=== PATIENT | male | born 1950 | race Caucasian/White ===

== ENCOUNTER 2019-01-31 06:35 | Inpatient (IN) | payer OTHER ==
[~2019-01-31] VITALS: Ht 172.7 cm; Wt 99.4 kg
--- NOTE | ~2019-01-31 | D ---
[facility] [place] [address] DISCHARGE SUMMARY Name: BENOIT BURROWS Room #: 212-P ADM IN M.R.#: [id number] Admission: 01/31/19 ������������������ Attend Phys: Toni Michelle MD, Discharge: ������������������ Date of : 52 Report #: [id number] THIS REPORT FOR: //name// CC: Toni Mosqueda DISCHARGE DIAGNOSES: 1. Unstable angina with normal left ventricular systolic function. 2. Multivessel coronary disease with multivessel bypass surgery (left internal mammary to the left anterior descending, saphenous vein graft to marginal branch, saphenous vein graft to posterior descending. 3. Hypertension. 4. Dyslipidemia. 5. Chronic obstructive pulmonary disease. 6. Moderate nonocclusive carotid plaquing. 7. Peripheral vascular disease. HISTORY OF PRESENT ILLNESS: For the complete details of the history of present illness, see dictated history and physical. Briefly, the patient is a 68-year-old gentleman, who presented with progressive exertional angina over the preceding 2 weeks. He was admitted for coronary angiography. The patient underwent coronary angiography, the details of which can be found under separate heading and dictation. In summary, critical left main disease was identified extending into the ostia of both the LAD and circumflex. There was moderate proximal to mid right coronary disease. He was seen in consultation by Dr. Solo and underwent surgical revascularization on 01/31/2019. His post-procedural course was largely uneventful, was rapidly extubated and weaned to room air. Hemodynamics were stable. Beta blockade and ARB therapy were reinstituted. Due to generalized debility, [facility] prior to transitioning home. Hemodynamics, rhythm and volume status remained stable throughout his hospitalization. DISCHARGE MEDICATIONS: Discharge medicines were reconciled. Discharge medicines include amiodarone 200 mg twice daily for 1 week, then 200 mg daily for 1 month and discontinue, aspirin 81 mg daily, atorvastatin 40 mg daily, iron 150 mg daily for 3 months, losartan 25 mg daily, metoprolol succinate 50 mg daily and hydrocodone 10/325 as needed for pain, Colace 100 mg daily. DISCHARGE FOLLOWUP: With myself in 6-8 weeks. Follow up with Dr. Lonnie Solo as directed. DISCHARGE ACTIVITY: As instructed post-surgical revascularization. DISCHARGE DIET: Heart healthy. [address] [address] DISCHARGE SUMMARY Name: BENOIT BURROWS JACQUELINE Room #: 212-P [facility] IN M.R.#: [id number] Admission: 01/31/19 ������������������ Attend Phys: Toni Michelle MD, Discharge: ������������������ Date of : 52 Report #: [id number] DISCHARGE CONDITION: Stable and improved. ��������������������������������������������� ���������������������������������������� By: ��������������������������������������������� 0813 0833 Toni Michelle MD, FACC /nt
[~2019-01-31 06:35] MED LIST: BACTRIM DS TAB1 EACH PO; FENOFIBRATE160 MG PO; FLEXERIL; HYDROCHLOROTHIA25 M2; LIPITOR40 MG PO; LOSARTAN POTASS50 MG; NORCO 10-325 T1 EACH; SYMBICORT160 MCG/4.
[2019-01-31 07:16] VITALS: BP 158/86
[2019-01-31] MEDS ORDERED: XANAX 0.5 MG0.5 MG PO (07:25)
[2019-01-31] MEDS ORDERED: BYSTOLIC 5 MG5 M1 PO (07:30)
[2019-01-31] MEDS ORDERED: ASPIRIN325 PO (07:30)
--- NOTE | 2019-01-31 09:29 | CATHLAB ---
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 The Right Groin^ was infiltrated with 1% Lidocaine subcutaneous anesthesia. A PINNACLE 6FR Sheath #[id number] sheath was inserted into the RFA^. Coronary angiography was performed using coronary diagnostic catheters. The right coronary system was accessed and visualized with a JR 4 catheter. The left coronary system was accessed and visualized with a JL 4 catheter. The left ventricle was accessed and visualized with a Pigtail catheter. Left ventricular/Aortic Valve gradient assessed via catheter pullback. Left ventriculogram was performed in POTTS projection. Closure device was deployed with a 6 Fr Mynx. The patient tolerated the procedure well and there were no complications associated with the procedure. There was no hematoma. Intraoperative Conscious Sedation Sedation start time: 07:58 Case end Time: 08:40 Fentanyl 50 mcg Versed 1 mg Fluoro Time: 5.70 minutes Dose: DAP 8415.00 cGycm2 1139 mGy Contrast Type and Amount: Omnipaque 85 ml [facility] [address] [facility] [place] [address] INVASIVE PROCEDURE REPORT Name: YULIYABABAKCRAIGBENOIT JACQUELINE Room #: REG [facility]#: [id number] ������������� Admission: 01/31/19 ������������� Attend Phys: Toni Michelle, Discharge: ��� ������������� ��� Date of : 52 Date of Service: 01/31/19 0929 �� Report #: [id number] �������� ��������������������������������������������[id number] Coronary Angiography The patient's coronary anatomy is right dominant. Diagnostic Cath Left Main Critical 99% left main stenosis LAD Severe ostial LAD stenosis, extending from the left main stenosis Diagonal 1 Large first diagonal branch, mild plaquing Circumflex Large, nondominant circumflex. Severe ostial circumflex disease, extension from the left main stenosis OM1 First marginal branch, mild calcific plaquing OM2 Second marginal branch, angiographically normal Right Coronary The right coronary was dominant with a 50-60% proximal stenosis R PDA Large posterior descending branch, angiographically normal RPLV Large posterolateral branch, angiographically normal Left Ventriculography The left ventricle is normal in size with normal contractility. The left ventricular ejection fraction is estimated to be 60-65%. Left ventricular wall motion abnormalities are not present. There is no mitral insufficiency. Hemodynamics The aortic pressure is 149/63 mmHg with a mean of 101 mmHg. The left ventricular pressure is 144/20 mmHg with a mean of mmHg. The left ventricular end diastolic pressure is 29 mmHg. Conclusion 1. Normal global and regional left ventricular systolic function. EF 60% 2. Critical LM stenosis with severe disease at ostium of LAD and circumflex 3. RCA dominant. 50-60% proximal stenosis Recommendations CABG ��������������������������������������������� <ELECTRONICALLY SIGNED> ���������������������������������������� By: Toni Michelle MD, FACC ��������������������������������������������� 01/31/1929 8 8 Toni Michelle MD, FACC /INF
[2019-01-31 11:00] VITALS: BP 137/73
[2019-01-31 12:56] LABS: ABSOLUTE NEUTROPHILS 8.2 thou/uL (1.4-8.2); BASOPHILS 0.3 % (0.0-2.0); HEMATOCRIT 39.4 % (42.0-52.0); HEMOGLOBIN 14.1 gm/dL (14.0-18.0); LYMPHOCYTES 28.2 % (24.0-44.0); MCH 33.1 pg (26.0-34.0); MCHC 35.9 g/dL (28.0-37.0); MCV 92.2 fL (80.0-100.0); MONOCYTES 8.3 % (1.0-8.0); PLATELET COUNT 243 thou/uL (150-400); POLYS 59.2 % (36.0-66.0); RBC 4.27 mil/uL (4.50-6.00); RDW 13.6 % (10.5-14.5); WBC 13.9 thou/uL (4.0-11.0)
[2019-01-31 13:15] LABS: CALCIUM 9.3 mg/dL (8.5-10.1); CREATININE 1.1 mg/dL (0.7-1.3); POTASSIUM 3.9 mmol/L (3.5-5.1)
[2019-01-31 13:16] LABS: APTT 25.9 Seconds (24.5-32.8); PROTIME 10.4 Seconds (9.3-11.4)
[2019-01-31 13:21] LABS: ALBUMIN 3.7 g/dL (3.4-5.0); TOTAL BILIRUBIN 0.8 mg/dL (<0.1-1.0); TOTAL PROTEIN 7.3 g/dL (6.4-8.2)
--- NOTE | 2019-01-31 13:47 | 2DMMODE ---
[facility] [address] [place] [address] 2 D/M-MODE ECHOCARDIOGRAM Name: YULIYABABAKCRAIGBENOIT TOVARITH Room #: 212-P ADM IN M.R.#: [id number] ������������� Admission: 01/31/19 ������������� Attend Phys: Toni Michelle, Discharge: ��� ������������� ��� Date of : 52 Date of Service: 01/31/19 1346 �� Report #: [id number] �������� ��������������������������������������������[id number] THIS REPORT FOR: //name// APPROVED REPORT Study performed: 01/31/2019 12:15:51 EXAM: Comprehensive 2D, Doppler, and color-flow Echocardiogram Patient Location: Bedside Room #: 212 Status: routine BSA: 2.15 HR: 49 bpm BP: 162/85 mmHg Rhythm: Bradycardia Other Information Study Quality: Adequate Risk Factors: Cardiac Risk Factors: HTN, Hyperlipidemia, Smoking Indications COPD CAD Chest Pain 2D Dimensions IVSd: 9.11 (7-11mm) LVOT Diam: 22.00 (18-24mm) LVDd: 48.26 mm PWd: 10.28 (7-11mm) Ascending Ao: 30.46 (22-36mm) LVDs: 31.03 (25-40mm) Aortic Root: 27.85 mm LV Single Plane 4CH: 57.40 % LV Single Plane 2CH: 53.71 % Biplane EF: 57.1 % Volumes Left Atrial Volume (Systole) Single Plane 4CH: 61.86 mL Single Plane 2CH: 98.87 mL LA ESV Index: 40.00 mL/m2 Aortic Valve AoV Peak Nicholas.: 1.12 m/s [facility] [address] [place] [address] 2 D/M-MODE ECHOCARDIOGRAM Name: BENOIT BURROWS Room #: 212-P [facility].#: [id number] ������������� Admission: 01/31/19 ������������� Attend Phys: Toni Michelle, Discharge: ��� ������������� ��� Date of : 52 Date of Service: 01/31/19 1346 �� Report #: [id number] �������� ��������������������������������������������[id number] AO Peak Gr.: 5.05 mmHg LVOT Max P.77 mmHg LVOT Max V: 0.83 m/s AMANUEL Vmax: 2.87 cm2 Mitral Valve E/A Ratio: 3.8 MV Decel. Time: 232.29 ms MV E Max Nicholas.: 1.02 m/s MV A Nicholas.: 0.27 m/s MV PHT: 67.36 ms IVRT: 87.66 ms TDI E/Lateral E': 7.29 E/Medial E': 11.33 Medial E' Nicholas.: 0.09 m/s Lateral E' Nicholas.: 0.14 m/s Pulmonary Valve PV Peak Nicholas.: 0.83 m/s PV Peak Gr.: 2.77 mmHg Tricuspid Valve TR Peak Nicholas.: 2.77 m/s RAP Estimate: 7.00 mmHg TR Peak Gr.: 30.77 mmHg PA Pressure: 38.00 mmHg Left Ventricle The left ventricle is normal size. There is normal LV segmental wall motion. There is normal left ventricular wall thickness. Left ventricular systolic function is normal. The left ventricular ejection fraction is within the normal range. LVEF is 55-60%. The left ventricular diastolic function is normal. Right Ventricle The right ventricle is normal size. The right ventricular systolic function is normal. Atria Left atrium is mildly dilated. The right atrium size is normal. Aortic Valve The aortic valve is normal in structure. No aortic regurgitation is present. There is no aortic valvular stenosis. Mitral Valve Mild mitral annular calcification. Mild to moderate mitral [facility] [address] [place] [address] 2 D/M-MODE ECHOCARDIOGRAM Name: BENOIT BURROWS JACQUELINE Room #: 212-P [facility] IN ..#: [id number] ������������� Admission: 01/31/19 ������������� Attend Phys: Toni Michelle, Discharge: ��� ������������� ��� Date of : 52 Date of Service: 01/31/19 1346 �� Report #: [id number] �������� ��������������������������������������������[id number] regurgitation. No evidence of mitral valve stenosis. Tricuspid Valve The tricuspid valve is normal in structure. Mild tricuspid regurgitation. Pulmonary artery pressure is 38 mmHg. Pulmonic Valve The pulmonary valve is normal in structure. There is no pulmonic valvular regurgitation. Great Vessels The aortic root is normal in size. The ascending aorta is normal in size. IVC is normal in size and collapses >50% with inspiration. Pericardium There is no pericardial effusion. <Conclusion> Left ventricular systolic function is normal. There is normal LV segmental wall motion. LVEF is 55-60%. The aortic valve is normal in structure. No aortic regurgitation or stenosis. Mild mitral annular calcification. Mild to moderate mitral regurgitation. Mild tricuspid regurgitation. Pulmonary artery pressure of 38 mmHg. There is no pericardial effusion. ��������������������������������������������� <ELECTRONICALLY SIGNED> ���������������������������������������� By: Toni Michelle MD, [facility] ��������������������������������������������� 01/31/19 1346 134 134 Toni Michelle MD, FAC /INF
[2019-01-31 13:50] LABS: ANISOCYTOSIS 1+
[2019-01-31 19:06] LABS: URINE BILIRUBIN NEGATIVE (Negative); URINE BLOOD NEGATIVE (Negative); URINE CLARITY CLEAR; URINE COLOR YELLOW; URINE GLUCOSE-RANDOM* NEGATIVE (Negative); URINE KETONES NEGATIVE (Negative); URINE LEUKOCYTES-REFLEX NEGATIVE (Negative); URINE NITRITE-REFLEX NEGATIVE (Negative); URINE PROTEIN (DIPSTICK) NEGATIVE (Negative); URINE UROBILINOGEN 0.2 E.U./dl (0.2-1.0)
[2019-01-31 20:11] VITALS: BP 137/73
[2019-01-31 20:20] VITALS: BP 141/81
[2019-01-31 23:14] VITALS: BP 133/74
[2019-02-01] VITALS (8 sets, daily range): BP systolic 133–148; BP diastolic 63–84
--- NOTE | 2019-02-01 08:12 | EKG ---
[address] [address] ELECTROCARDIOGRAM REPORT Name: YULIYABENOIT BANKS Room #: 212-P ADM IN M.R.#: [id number] ������������������ Admission: 01/31/19 ������������������ Attend Phys: Toni Michelle MD, Discharge: ������������������ Date of : 52 Report #: [id number] ����������������������������������������������������������������� [id number] THIS REPORT FOR: //name// [facility] Test Date: 2019-01-31 Test Time: 09:15:09 Pat Name: BENOIT BURROWS Department: Room: [facility] Gender: M Senior Administrator Support: Rachael GROVES : 1950 Requested By: Toni Michelle Order Number: [id number] MD: Toni Michelle Measurements Intervals [place] Rate: 48 P: 59 NH: 137 QRS: 10 QRSD: 100 T: 8 QT: 471 QTc: 421 Interpretive Statements Sinus bradycardia Abnormal R-wave progression, early transition No previous ECG available for comparison Electronically Signed On 02-01-2019 8:12:44 CDT by Toni Michelle [email or web address] ��������������������������������������������� <ELECTRONICALLY SIGNED> ���������������������������������������� By: Toni Michelle MD, [facility] ��������������������������������������������� 02/01/1912 4 4 Toni Michelle MD, [facility] /EPI
--- NOTE | 2019-02-01 08:45 | EKG ---
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 : 1950 Requested By: Dominguez Yanez Order Number: [id number] MD: Toni Michelle Measurements Intervals [place] Rate: 52 P: 40 NM: 148 QRS: 1 QRSD: 90 T: QT: 469 QTc: 437 Interpretive Statements Sinus rhythm Abnormal R-wave progression, early transition Minimal ST depression, anterolateral leads No previous ECG available for comparison Electronically Signed On 02-01-2019 8:45:08 CDT by Toni Michelle [email or web address] ��������������������������������������������� <ELECTRONICALLY SIGNED> ���������������������������������������� By: Toni Michelle MD, [facility] ��������������������������������������������� 02/01/19 0845 9 9 Toni Michelle MD, [facility] /EPI
[2019-02-01 12:06] LABS: GLYCOHEMOGLOBIN (HGB A1C) 5.5 % (4.8-5.6)
[2019-02-02 00:19] VITALS: BP 136/80
[2019-02-02 07:22] VITALS: BP 141/80
[2019-02-02 11:53] VITALS: BP 137/70
[2019-02-02 16:27] VITALS: BP 156/87
[2019-02-02 21:28] VITALS: BP 140/77
[2019-02-03 05:18] LABS: HEMATOCRIT 34.2 % (42.0-52.0); HEMOGLOBIN 12.5 gm/dL (14.0-18.0); MCH 33.8 pg (26.0-34.0); MCHC 36.4 g/dL (28.0-37.0); RBC 3.68 mil/uL (4.50-6.00); RDW 13.8 % (10.5-14.5); WBC 16.7 thou/uL (4.0-11.0)
[2019-02-03 08:34] VITALS: BP 141/79
--- NOTE | 2019-02-03 09:01 | HC ---
[facility] [place] [address] CONSULTATION Name: BENOIT BURROWS Room #: 212-P ADM IN M.R.#: [id number] Admission: 01/31/19 ������������������ Attend Phys: Toni Michelle MD, Discharge: ������������������ Date of : 52 Report #: [id number] THIS REPORT FOR: //name// CC: Toni Michelle Osito Mosqueda DATE OF SERVICE: 01/31/2019 REASON FOR CONSULTATION: Coronary artery disease. HISTORY OF PRESENT ILLNESS: We were asked by Dr. Michelle to see the patient for coronary artery disease. The patient presents with exertional angina. The patient has had 2 episodes of severe chest tightness and shortness of breath with exertion over the last 2 weeks. Cardiac catheterization today shows 99% left main stenosis and a 50-60% right coronary stenosis. Left ventricular function seems to be satisfactory. PAST MEDICAL HISTORY: We note hypertension and hyperlipidemia. The patient denies diabetes mellitus. The patient also has chronic obstructive pulmonary disease. 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 MEDICATIONS: Include alprazolam, nebivolol, aspirin, hydrochlorothiazide, losartan, Symbicort inhaler, atorvastatin, hydrocodone for back and neck pain. ALLERGIES: None known. SOCIAL HISTORY: Former smoker for many years. FAMILY HISTORY: Not significant for coronary artery disease. REVIEW OF SYSTEMS: GENERAL: The patient denies fever, weight change. EYES: Wears glasses. HEENT: No headache, no sinus issues. No hearing problems. RESPIRATORY: Denies shortness of breath other than with his exertional symptoms. CARDIAC: As mentioned, severe angina with exertion. No rest pain, no palpitations. GASTROINTESTINAL: No nausea, vomiting or blood. GENITOURINARY: No urgency, frequency or blood. MUSCULOSKELETAL: He has had a neck fusion and still has neck pain and neuropathic pain from that. NEUROLOGIC: As above. No other focal motor or sensory deficit. PSYCHIATRIC: No hallucination. [facility] [address] [place] [address] CONSULTATION Name: BENOIT BURROWS Room #: 212-P [facility] IN [facility].#: [id number] Admission: 01/31/19 ������������������ Attend Phys: Toni Michelle MD, Discharge: ������������������ Date of : 52 Report #: [id number] SKIN: No rash or infection. VASCULAR: No claudication. PHYSICAL EXAMINATION: GENERAL: The patient is lying comfortably in bed. VITAL SIGNS: Temperature 36.3, heart rate 49, respiratory rate 20, blood pressure 137/73. HEENT: Normocephalic. Pupils are round, equal. No arcus. No icterus. NECK: No mass. I hear no bruits. CHEST: Clear. CARDIAC: No murmurs are audible. Regular heart rate and rhythm. ABDOMEN: Soft, no masses. EXTREMITIES: No clubbing, cyanosis or edema, 2+ popliteal pulses bilaterally. SKIN: No rash or infection. MUSCULOSKELETAL: No asymmetry or deformity. PSYCHIATRIC: Oriented x 3 and appropriate. ASSESSMENT: The patient has important left main coronary artery disease in the setting of new symptoms. We have recommended coronary artery bypass surgery. Risks and details were discussed with the patient. Options and alternatives were reviewed. Risks include, but are not limited to, bleeding, infection, anesthesia risks, heart and lung problems, stroke and . The patient understands all of this and wishes to proceed. Due to schedule limitations, we planned surgery first thing Monday and we will maintain the patient on IV heparin until that time. Discussed with Dr. Michelle. Thank you for the consultation. ��������������������������������������������� <ELECTRONICALLY SIGNED> ���������������������������������������� By: Lonnie Solo MD ��������������������������������������������� 02/03/19 0901 1359 20 Lonnie Solo MD /nt
[2019-02-03 11:54] VITALS: BP 142/80
[2019-02-03 16:10] VITALS: BP 161/86
[2019-02-03 19:35] VITALS: BP 144/70
[2019-02-04] VITALS (24 sets, daily range): BP systolic 89–164; BP diastolic 50–93
[2019-02-04 04:27] LABS: HEMOGLOBIN 12.7 gm/dL (14.0-18.0); MCH 33.4 pg (26.0-34.0); MCHC 36.3 g/dL (28.0-37.0); MCV 92.1 fL (80.0-100.0); RBC 3.8 mil/uL (4.50-6.00); RDW 13.9 % (10.5-14.5); WBC 17.1 thou/uL (4.0-11.0)
[2019-02-04 04:31] LABS: APTT 50.4 Seconds (24.5-32.8); PROTIME 10.4 Seconds (9.3-11.4)
[2019-02-04 04:34] LABS: ALBUMIN 3.3 g/dL (3.4-5.0); CALCIUM 9.4 mg/dL (8.5-10.1); CREATININE 1.1 mg/dL (0.7-1.3); POTASSIUM 3.9 mmol/L (3.5-5.1)
--- NOTE | 2019-02-04 07:57 | EKG ---
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 : 1950 Requested By: Toni Michelle Order Number: [id number] MD: Toni Michelle Measurements Intervals [place] Rate: 54 P: 70 ME: 114 QRS: 1 QRSD: 107 T: 16 QT: 470 QTc: 446 Interpretive Statements Sinus rhythm Borderline short ME interval Abnormal R-wave progression, early transition Nonspecific ST segment abnormality Compared to ECG 02/01/2019 07:00:03 No significant changes Electronically Signed On 02-04-2019 7:57:32 CDT by Toni Michelle [email or web address] ��������������������������������������������� <ELECTRONICALLY SIGNED> ���������������������������������������� By: Toni Michelle MD, FACC ��������������������������������������������� 02/04/19 0757 7 7 Toni Michelle MD, [facility] /EPI
[2019-02-04 13:09] LABS: MCH 33.5 pg (26.0-34.0); MCHC 35.9 g/dL (28.0-37.0); MCV 93.2 fL (80.0-100.0); RBC 2.7 mil/uL (4.50-6.00); RDW 13.8 % (10.5-14.5); WBC 22.4 thou/uL (4.0-11.0)
[2019-02-04 13:11] LABS: HEMATOCRIT 25.1 % (42.0-52.0)
[2019-02-04 13:24] LABS: INR 1.4
[2019-02-04 13:25] LABS: APTT 25.5 Seconds (24.5-32.8); PROTIME 14.7 Seconds (9.3-11.4)
[2019-02-04 14:13] LABS: POC BE 3 mmol/L (-2.0 to +3.0); POC CA IONIZED 4.4 mg/dL (4.5-5.3); POC GLUCOSE 121 mg/dL (70-99); POC HCO3 26.8 mmol/L (22.0-26.0); POC HEMOGLOBIN 8.5 g/dL (14.0-18.0); POC POTASSIUM 5.1 mmol/L (3.5-5.1); POC SODIUM 138 mmol/L (136-145); POC pCO2 37.1 mmHg (35.0-45.0); POC pH 7.466 (7.360-7.450)
[2019-02-04 14:13] LABS: POC BE 4 mmol/L (-2.0 to +3.0); POC CA IONIZED 4.2 mg/dL (4.5-5.3); POC GLUCOSE 107 mg/dL (70-99); POC HCO3 27.1 mmol/L (22.0-26.0); POC HEMOGLOBIN 8.2 g/dL (14.0-18.0); POC POTASSIUM 4.8 mmol/L (3.5-5.1); POC SODIUM 136 mmol/L (136-145); POC pCO2 36.7 mmHg (35.0-45.0); POC pH 7.476 (7.360-7.450)
[2019-02-04 14:19] LABS: POC BE 3 mmol/L (-2.0 to +3.0); POC CA IONIZED 4.3 mg/dL (4.5-5.3); POC GLUCOSE 141 mg/dL (70-99); POC HCO3 27.4 mmol/L (22.0-26.0); POC HEMOGLOBIN 9.2 g/dL (14.0-18.0); POC POTASSIUM 5.6 mmol/L (3.5-5.1); POC SODIUM 135 mmol/L (136-145); POC pCO2 41.6 mmHg (35.0-45.0); POC pH 7.426 (7.360-7.450)
[2019-02-04 14:19] LABS: POC BE -2 mmol/L (-2.0 to +3.0); POC CA IONIZED 5.3 mg/dL (4.5-5.3); POC GLUCOSE 149 mg/dL (70-99); POC HCO3 23.7 mmol/L (22.0-26.0); POC HEMOGLOBIN 8.5 g/dL (14.0-18.0); POC POTASSIUM 5.3 mmol/L (3.5-5.1); POC SODIUM 136 mmol/L (136-145)
[2019-02-04 14:19] LABS: POC BE 2 mmol/L (-2.0 to +3.0); POC GLUCOSE 110 mg/dL (70-99); POC HEMOGLOBIN 10.5 g/dL (14.0-18.0); POC POTASSIUM 4.4 mmol/L (3.5-5.1); POC SODIUM 139 mmol/L (136-145); POC pCO2 42.3 mmHg (35.0-45.0); POC pH 7.413 (7.360-7.450)
[2019-02-04 14:19] LABS: POC BE 0 mmol/L (-2.0 to +3.0); POC CA IONIZED 4.8 mg/dL (4.5-5.3); POC GLUCOSE 115 mg/dL (70-99); POC HCO3 24.7 mmol/L (22.0-26.0); POC HEMOGLOBIN 9.5 g/dL (14.0-18.0); POC POTASSIUM 4.5 mmol/L (3.5-5.1); POC SODIUM 138 mmol/L (136-145); POC pCO2 38.9 mmHg (35.0-45.0); POC pH 7.411 (7.360-7.450)
[2019-02-04 14:19] LABS: POC BE -3 mmol/L (-2.0 to +3.0); POC CA IONIZED 4.9 mg/dL (4.5-5.3); POC GLUCOSE 149 mg/dL (70-99); POC HCO3 23.2 mmol/L (22.0-26.0); POC HEMOGLOBIN 9.5 g/dL (14.0-18.0); POC POTASSIUM 4.9 mmol/L (3.5-5.1); POC SODIUM 138 mmol/L (136-145); POC pCO2 43.1 mmHg (35.0-45.0)
[2019-02-04 14:54] LABS: MCH 33.7 pg (26.0-34.0); MCHC 35.9 g/dL (28.0-37.0); MCV 93.8 fL (80.0-100.0); RBC 3.41 mil/uL (4.50-6.00); RDW 13.9 % (10.5-14.5); WBC 30.1 thou/uL (4.0-11.0)
[2019-02-04 14:56] LABS: HEMOGLOBIN 11.5 gm/dL (14.0-18.0)
[2019-02-04 15:07] LABS: CALCIUM 8.9 mg/dL (8.5-10.1); CREATININE 1.3 mg/dL (0.7-1.3); MAGNESIUM 2.3 mg/dL (1.8-2.4); POTASSIUM 4.7 mmol/L (3.5-5.1)
[2019-02-04 15:08] LABS: BE(vivo) -5.6 mmol/L (-2 to +3); HCO3 21.2 mmol/L (22.0-26.0); PCO2 46.3 mmHg (35.0-45.0); PO2 144.1 mmHg (80.0-100.0); sO2 98.6 % (92.0-98.0)
[2019-02-04 15:09] LABS: pH 7.279 (7.360-7.450)
[2019-02-04 15:10] LABS: APTT 26.1 Seconds (24.5-32.8); INR 1.1; PROTIME 11.4 Seconds (9.3-11.4)
[2019-02-04 18:35] LABS: BE(vivo) -2.8 mmol/L (-2 to +3); HCO3 21.7 mmol/L (22.0-26.0); PCO2 36.9 mmHg (35.0-45.0); PO2 118.2 mmHg (80.0-100.0); pH 7.388 (7.360-7.450); sO2 98.3 % (92.0-98.0)
[2019-02-04 20:17] LABS: BE(vivo) -2.5 mmol/L (-2 to +3); HCO3 21.4 mmol/L (22.0-26.0); PO2 77.9 mmHg (80.0-100.0); pH 7.416 (7.360-7.450); sO2 95.8 % (92.0-98.0)
[2019-02-05 05:54] LABS: HEMATOCRIT 29.1 % (42.0-52.0); HEMOGLOBIN 10.5 gm/dL (14.0-18.0); MCH 33.8 pg (26.0-34.0); MCHC 35.9 g/dL (28.0-37.0); MCV 94.1 fL (80.0-100.0); RBC 3.1 mil/uL (4.50-6.00); WBC 17.1 thou/uL (4.0-11.0)
[2019-02-05 06:12] LABS: CALCIUM 8.5 mg/dL (8.5-10.1); CREATININE 1.3 mg/dL (0.7-1.3); MAGNESIUM 2.3 mg/dL (1.8-2.4); POTASSIUM 4.2 mmol/L (3.5-5.1)
--- NOTE | 2019-02-05 07:36 | EKG ---
[address] [address] ELECTROCARDIOGRAM REPORT Name: BENOIT BURROWS Room #: 238-P ADM IN M.R.#: [id number] ������������������ Admission: 01/31/19 ������������������ Attend Phys: Toni Michelle MD, Discharge: ������������������ Date of : [birth year] Report #: [id number] ����������������������������������������������������������������� [id number] THIS REPORT FOR: //name// [facility] Test Date: 2019-02-04 Test Time: 15:49:18 Pat Name: BENOIT BURROWS Department: Room: 238 Gender: M [employer]: Evelia MILES : 1950 Requested By: Dominguez Yanez Order Number: [id number] MD: Toni Michelle Measurements Intervals [place] Rate: 73 P: 56 TN: 121 QRS: 25 QRSD: 80 T: 13 QT: 410 QTc: 452 Interpretive Statements Sinus rhythm Early R-wave progression Nonspecific ST segment abnormality Compared to ECG 02/04/2019 05:18:06 no significant change was found Electronically Signed On 02-05-2019 7:36:40 CDT by Toni Michelle [email or web address] ��������������������������������������������� <ELECTRONICALLY SIGNED> ���������������������������������������� By: Toni Michelle MD, [facility] ��������������������������������������������� 02/05/19 0736 1549 1549 Toni Michelle MD, [facility] /EPI
--- NOTE | 2019-02-05 07:52 | EKG ---
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 : 1950 Requested By: Dominguez Yanez Order Number: [id number] MD: Toni Michelle Measurements Intervals [place] Rate: 75 P: 36 RI: 112 QRS: -4 QRSD: 85 T: -12 QT: 395 QTc: 442 Interpretive Statements Sinus rhythm Borderline short RI interval Early R-wave progression Nonspecific T wave abnormality Compared to ECG 02/04/2019 05:18:06 No significant change was found Electronically Signed On 02-05-2019 7:52:12 CDT by Toni Michelle [email or web address] ��������������������������������������������� <ELECTRONICALLY SIGNED> ���������������������������������������� By: Toni Michelle MD, FACC ��������������������������������������������� 02/05/19 0752 0711 0711 Toni Michelle MD, [facility] /EPI
--- NOTE | 2019-02-05 15:47 | O ---
[facility] [place] [address] OPERATIVE REPORT Name: BENOIT BURROWS Room #: 238-P ADM IN M.R.#: [id number] Admission: 01/31/19 ������������������ Attend Phys: Toni Michelle MD, Discharge: ������������������ Date of : 52 Report #: [id number] THIS REPORT FOR: //name// CC: Toni Michelle Osito Samon DATE OF SERVICE: 02/04/2019 PREOPERATIVE DIAGNOSIS: Coronary artery disease. POSTOPERATIVE DIAGNOSIS: Coronary artery disease. OPERATION: Coronary artery bypass x 3 including left internal mammary artery to left anterior descending artery. SURGEON: Lonnie Solo M.D. GEOSCIENCE SPECIALIST: JESENIA Lerma. ANESTHESIA: General. INDICATIONS: The patient is a 68-year-old seen for Dr. Michelle. The patient presents with exertional angina and shortness of breath. Catheterization demonstrated a high-grade left main coronary artery stenosis and moderate right coronary artery stenosis. Left ventricular function is satisfactory. FINDINGS AND TECHNIQUE: After general anesthesia was established, saphenous vein was harvested using an endoscopic approach. Exposure was obtained through median sternotomy. Left internal mammary artery was harvested from chest wall. Pericardial well was made. Cannulation sutures were placed. Heparin was given. Aorta was cannulated. Right atrium was cannulated. Cardioplegia needle was positioned in the aortic root. Retrograde cardioplegic catheter was placed in coronary sinus. Cardiopulmonary bypass was established. The aorta was cross clamped. Antegrade and retrograde cardioplegia were given. Ice was poured in the pericardial well. The heart was stopped. During electromechanical arrest, the distal anastomoses were performed. An end-to-side anastomosis was made between vein and the posterior descending artery. Cold cardioplegia was given. A separate segment of vein was sewn in end-to-side fashion to the marginal artery. Cold cardioplegia was given. Left internal mammary artery was sewn in end-to-side fashion to the left anterior descending artery. Patency of this vessel was checked with the temperature technique. Cold cardioplegia was given. Two proximal anastomoses were performed. When these were complete, warm retrograde cardioplegia was given followed by warm continuous blood to the coronary sinus. When this infusion was complete, the crossclamp was removed, de-airing maneuvers were performed. The [address] [address] OPERATIVE REPORT Name: BENOIT BURROWS Room #: 238-P [facility] IN ..#: [id number] Admission: 01/31/19 ������������������ Attend Phys: Toni Michelle MD, Discharge: ������������������ Date of : 52 Report #: [id number] anastomoses were inspected and found to be satisfactory. As the patient warmed, nice cardiac activity resumed, chest tubes and pacing wires were placed, a marker was placed around the proximal anastomoses. When the patient was warmed, he was weaned from cardiopulmonary bypass. Venous cannula was removed. Protamine was given, the aortic cannula was removed. Flows were measured in the bypass grafts. When hemostasis was satisfactory, the chest was closed in the usual fashion. The patient was taken to the Intensive Care Unit in good condition. All counts reported as correct. ��������������������������������������������� <ELECTRONICALLY SIGNED> ���������������������������������������� By: Lonnie Solo MD ��������������������������������������������� 02/05/19 1547 [id number] Lonnie Solo MD /nt
[2019-02-05 18:10] VITALS: BP 90/60
[2019-02-05 19:00] VITALS: BP 99/54
[2019-02-05 20:00] VITALS: BP 111/63
[2019-02-05 21:00] VITALS: BP 104/59
[2019-02-05 22:00] VITALS: BP 113/59
[2019-02-05 23:00] VITALS: BP 118/59
[2019-02-06] VITALS (20 sets, daily range): BP systolic 91–117; BP diastolic 44–68
[2019-02-06 05:23] LABS: CALCIUM 8.7 mg/dL (8.5-10.1); CREATININE 1.2 mg/dL (0.7-1.3); POTASSIUM 4.1 mmol/L (3.5-5.1)
[2019-02-06 06:09] LABS: HEMATOCRIT 27.2 % (42.0-52.0); HEMOGLOBIN 9.6 gm/dL (14.0-18.0); MCH 34.2 pg (26.0-34.0); MCHC 35.5 g/dL (28.0-37.0); MCV 96.4 fL (80.0-100.0); RBC 2.82 mil/uL (4.50-6.00); RDW 13.4 % (10.5-14.5); WBC 18.7 thou/uL (4.0-11.0)
[2019-02-07 05:00] VITALS: BP 102/51
[2019-02-07 07:45] VITALS: BP 129/74
[2019-02-07 15:25] VITALS: BP 101/48
[2019-02-07 19:26] VITALS: BP 114/53
[2019-02-08 03:58] VITALS: BP 135/71
[2019-02-08 05:44] LABS: HEMATOCRIT 24.9 % (42.0-52.0); HEMOGLOBIN 8.9 gm/dL (14.0-18.0); MCH 33.9 pg (26.0-34.0); MCHC 35.8 g/dL (28.0-37.0); MCV 94.5 fL (80.0-100.0); RBC 2.64 mil/uL (4.50-6.00); RDW 13.7 % (10.5-14.5); WBC 14.5 thou/uL (4.0-11.0)
[2019-02-08 05:56] LABS: CALCIUM 9.2 mg/dL (8.5-10.1); CREATININE 1.2 mg/dL (0.7-1.3)
[2019-02-08] MEDS ORDERED: FERREX 150 PLU1 EAC1 PO (08:07)
[2019-02-08] MEDS ORDERED: PACERONE 200 M200 M1 PO ×2 (08:07)
[2019-02-08] MEDS ORDERED: MIRALAX17 GM PO (08:07)
[2019-02-08] MEDS ORDERED: TOPROL XL25 MG PO (08:07)
[2019-02-08] MEDS ORDERED: COLACE 100 MG100 MG PO (08:07)
[2019-02-08] MEDS ORDERED: LOSARTAN POTASS50 MG PO (08:07)
[2019-02-08] MEDS ORDERED: ADULT LOW DOSE81 MG PO (08:07)
--- NOTE | 2019-02-08 08:44 | EKG ---
[address] [place] [address] ELECTROCARDIOGRAM REPORT Name: BENOIT BURROWS Room #: 212-P ADM IN M.R.#: [id number] ������������������ Admission: 01/31/19 ������������������ Attend Phys: Toni Michelle MD, Discharge: ������������������ Date of : 52 Report #: [id number] ����������������������������������������������������������������� [id number] THIS REPORT FOR: //name// [facility] Test Date: 2019-02-08 Test Time: 07:07:49 Pat Name: BENOIT BURROWS Department: Room: 212 P Gender: M Onboarding Specialist: COLLEEN : 1950 Requested By: Dominguez Yanez Order Number: [id number] MD: Toni Michelle Measurements Intervals [place] Rate: 67 P: 51 NC: 121 QRS: -5 QRSD: 90 T: 1 QT: 423 QTc: 447 Interpretive Statements Sinus rhythm Abnormal R-wave progression, early transition Compared to ECG 02/05/2019 07:11:54 No significant changes Electronically Signed On 02-08-2019 8:44:39 CDT by Toni Michelle [email or web address] ��������������������������������������������� <ELECTRONICALLY SIGNED> ���������������������������������������� By: Toni Michelle MD, [facility] ��������������������������������������������� 02/08/19 [id number] Toni Michelle MD, [facility] /EPI
[2019-02-08 09:01] VITALS: BP 118/65
[2019-02-08 12:33] VITALS: BP 108/62
[2019-02-08 16:12] VITALS: BP 108/62
[2019-02-08 16:47] VITALS: BP 96/54
[2019-02-08 19:59] VITALS: BP 141/54
[2019-02-09 04:32] VITALS: BP 122/50
[2019-02-09 09:16] VITALS: BP 104/57
== END 2019-02-09 14:25 | DRG 233 ==
LOC: CATH 06:35 → 2N 10:54 → ICU 10:54 → CATH 12:41 → TBA 02-04 07:24 → ICU 02-04 14:44 → 2N 02-06 17:16
PROVIDERS: Physician Assistant; Surgery Vascular Surgery; ADMIT Internal Medicine
PROC: B2111ZZ Fluoroscopy of Multiple Coronary Arteries using Low Osmolar Contrast (ICD-10-PCS; principal; 2019-01-31)
PROC: 4A023N7 Measurement of Cardiac Sampling and Pressure, Left Heart, Percutaneous Approach (ICD-10-PCS; principal; 2019-01-31)
PROC: B2151ZZ Fluoroscopy of Left Heart using Low Osmolar Contrast (ICD-10-PCS; principal; 2019-01-31)
PROC: 021109W Bypass Coronary Artery, Two Arteries from Aorta with Autologous Venous Tissue, Open Approach (ICD-10-PCS; 2019-02-04)
PROC: 02100Z9 Bypass Coronary Artery, One Artery from Left Internal Mammary, Open Approach (ICD-10-PCS; 2019-02-04)
PROC: 06BQ4ZZ Excision of Left Saphenous Vein, Percutaneous Endoscopic Approach (ICD-10-PCS; 2019-02-04)
PROC: 5A1221Z Performance of Cardiac Output, Continuous (ICD-10-PCS; 2019-02-04)
DX: I25.110 Atherosclerotic heart disease of native coronary artery with unstable angina pectoris (principal); I50.33 Acute on chronic diastolic (congestive) heart failure; I10 Essential (primary) hypertension; E78.5 Hyperlipidemia, unspecified; J44.9 Chronic obstructive pulmonary disease, unspecified; I73.9 Peripheral vascular disease, unspecified; I65.29 Occlusion and stenosis of unspecified carotid artery; F41.9 Anxiety disorder, unspecified; Z79.82 Long term (current) use of aspirin; Z79.899 Other long term (current) drug therapy; Z90.81 Acquired absence of spleen; Z87.891 Personal history of nicotine dependence
CPT/HCPCS: 10078; 10081; 47000; 47001; 47002; 47297; 48888; 50010; 50249; 50409; 50456; 50498; 50668; 51301; 52131; 52259; 52314; 53327; 53358; 54118; 56455; 56524; 56525; 56526; 56527; 56528; 56531; 56534; 56668; 56760; 56898; 57093; 57116; 57167; 62110; 62950; 65003; 65020; 65047; 65090; 65120; 65135

== ENCOUNTER → 2019-02-25 | Outpatient (CLI) | payer OTHER ==
[~2019-02-25] MED LIST changes: +ADULT LOW DOSE81 MG PO; +ASPIRIN325 PO; +BYSTOLIC 5 MG5 M1 PO; +COLACE 100 MG100 MG PO; +FERREX 150 PLU1 EAC1 PO; +LOSARTAN POTASS50 MG PO; +MIRALAX17 GM PO; +PACERONE 200 M200 M1 PO; +TOPROL XL25 MG PO; +XANAX 0.5 MG0.5 MG PO
== END ==
LOC: RAD 15:15
DX: J98.11 Atelectasis (principal); M47.814 Spondylosis without myelopathy or radiculopathy, thoracic region; Z95.1 Presence of aortocoronary bypass graft

== ENCOUNTER → 2019-10-30 | Outpatient (CLI) | payer MEDICARE | LOC: SJCVC 10:14 | DX: R94.31 Abnormal electrocardiogram [ECG] [EKG] (principal); I10 Essential (primary) hypertension; I25.10 Atherosclerotic heart disease of native coronary artery without angina pectoris; E78.5 Hyperlipidemia, unspecified; I73.9 Peripheral vascular disease, unspecified; Z95.1 Presence of aortocoronary bypass graft ==

== ENCOUNTER → 2019-11-12 | Outpatient (CLI) | payer MEDICARE | LOC: SJCVCIMAG 14:26 | DX: I08.1 Rheumatic disorders of both mitral and tricuspid valves (principal); I25.810 Atherosclerosis of coronary artery bypass graft(s) without angina pectoris; I10 Essential (primary) hypertension; E78.5 Hyperlipidemia, unspecified; J44.9 Chronic obstructive pulmonary disease, unspecified; Z87.891 Personal history of nicotine dependence; Z95.1 Presence of aortocoronary bypass graft ==